=== PATIENT | female | born 1980 | race Caucasian/White ===

== ENCOUNTER 2020-05-22 19:56 | Emergency (ER) | payer MEDICARE, OTHER ==
[~2020-05-22] VITALS: Ht 165.1 cm; Wt 127.0 kg
[2020-05-22] MEDS ORDERED: ARNUITY ELLIPT50 MCG (20:28)
[2020-05-22] MEDS ORDERED: NEURONTIN300 MG PO (20:28)
[2020-05-22] MEDS ORDERED: ZANAFLEX2 M1 PO (20:30)
[2020-05-22] MEDS ORDERED: VENTOLIN HFA18 GM INH (20:30)
[2020-05-22] MEDS ORDERED: CALCIUM 500-VI1 EACH PO (20:31)
[2020-05-22] MEDS ORDERED: FLOVENT HFA10.6 GM INH (20:32)
[2020-05-22] MEDS ORDERED: IBU800 MG PO (20:33)
[2020-05-22] MEDS ORDERED: ALL DAY ALLERGY10 M3 PO (20:33)
[2020-05-22] MEDS ORDERED: ATIVAN2 MG PO (20:34)
[2020-05-22] MEDS ORDERED: OMEPRAZOLE20 M1 PO (20:34)
[2020-05-22] MEDS ORDERED: CLARITIN10 M2 PO (20:35)
[2020-05-22] MEDS ORDERED: ZESTRIL5 MG PO (20:36)
[2020-05-22] MEDS ORDERED: SINGULAIR10 MG PO (20:37)
[2020-05-22] MEDS ORDERED: PREDNISONE20 MG PO (21:09)
--- OUTSIDE RECORDS SUMMARY | 2020-05-22 22:34 | XMS ---
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 [place] has no Care Guidelines for this patient. Bruno VISIT COUNT (12 MO.) 1 ERIC Dolan TOTAL 1 NOTE: Visits indicate total known visits. ED/UCC VISIT TRACKING (12 MO.) 05/22/2020 19:57 ERIC Matthew [place] TYPE: Emergency COMPLAINT: - SOB INPATIENT VISIT TRACKING (12 MO.) No inpatient visits to display in this time frame [email or web address]
--- NOTE | 2020-05-23 06:11 | EKG ---
[facility] [address] [place], [place] [address] Signed Normal sinus rhythm Normal ECG No previous ECGs available Confirmed by ANDRES KATZ MD ([id number] on 05/23/2020 6:10:53 AM Electronically Signed By: ANDRES KATZ MD 05/23/20 0611 PATIENT NAME: MELISSA MUÑOZ Electrocardiogram DATE OF : 78 PHYSICIAN: ANDRES KATZ MD REPORT #: [id number] REPORT IS CONFIDENTIAL AND NOT TO BE RELEASED WITHOUT AUTHORIZATION
== END 2020-05-22 21:22 | disposition home or self-care (01) ==
LOC: ED 19:56
DX: J45.901 Unspecified asthma with (acute) exacerbation (principal); Z88.0 Allergy status to penicillin; Z79.899 Other long term (current) drug therapy
CPT/HCPCS: 71045; 80053; 83735; 84484; 85025; 93005; 93010; 96374; 99285-25; J2930

== ENCOUNTER 2020-11-05 19:42 | Emergency (ER) | payer MEDICARE, OTHER ==
[~2020-11-05] VITALS: Ht 162.6 cm; Wt 136.1 kg
[~2020-11-05 19:42] MED LIST: ALL DAY ALLERGY10 M3 PO; ARNUITY ELLIPT50 MCG; ATIVAN2 MG PO; CALCIUM 500-VI1 EACH PO; CLARITIN10 M2 PO; FLOVENT HFA10.6 GM INH; IBU800 MG PO; NEURONTIN300 MG PO; OMEPRAZOLE20 M1 PO; PREDNISONE20 MG PO; SINGULAIR10 MG PO; VENTOLIN HFA18 GM INH; ZANAFLEX2 M1 PO; ZESTRIL5 MG PO
--- OUTSIDE RECORDS SUMMARY | 2020-11-05 19:44 | XMS ---
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 EJoan VISIT COUNT (12 MO.) 2 ERIC Dolan TOTAL 2 NOTE: Visits indicate total known visits. 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
[2020-11-05] MEDS ORDERED: LIPITOR10 MG PO (19:56)
[2020-11-05] MEDS ORDERED: LEVEMIR100 UNIT/1 SUB-Q (19:57)
[2020-11-05] MEDS ORDERED: CEPHALEXIN500 MG PO (23:22)
[2020-11-05] MEDS ORDERED: BACTRIM DS TAB1 EACH PO (23:22)
== END 2020-11-05 23:35 | disposition left against medical advice (07) ==
LOC: ED 19:42
DX: L03.012 Cellulitis of left finger (principal); Z20.822 Contact with and (suspected) exposure to COVID-19; J44.9 Chronic obstructive pulmonary disease, unspecified; E11.9 Type 2 diabetes mellitus without complications; Z88.0 Allergy status to penicillin; Z79.899 Other long term (current) drug therapy; Z79.4 Long term (current) use of insulin
CPT/HCPCS: 80053; 83605; 85025; 87040; 87077; 87186; 90471; 90715; 99284-25; A9270; C9803; J0713; J3370; J7121; Q9967; U0003